=== PATIENT | female | born 2000 | race Caucasian/White ===

== ENCOUNTER 2024-03-01 10:55 | Inpatient (IN) | payer OTHER ==
[2024-03-01] MEDS: ELECTROLYTE-148 SOLN 1,000 ML IV SCH (11:35)
[2024-03-01] MEDS: DINOPROSTONE 10 MG VAGINAL SUPPOSITORY VG STA (12:00)
[2024-03-01 12:01] LABS: BASO % 0.1 % (0-2.0); EOS % 0.8 % (0-4.5); HEMATOCRIT 38.5 % (32.4-45.2); HEMOGLOBIN 13.1 GM/dL (10.7-15.3); LYMPH % 15.9 % (8-40); MCH 29.9 pg (25.7-33.7); MCHC 34.1 g/dl (32.0-36.0); MEAN CELL VOLUME 87.7 fl (80-96); MEAN PLT VOLUME 8.8 fl (7.5-11.1); MONO % 7.1 % (3.8-10.2); NEUT % 76.1 % (42.8-82.8); PLATELET COUNT 188 10^3/uL (134-434); RBC 4.39 M/mm3 (3.60-5.2); RDW 14.3 % (11.6-15.6); WHITE BLOOD COUNT 8.4 K/mm3 (4.0-10.0)
[2024-03-01 12:10] LABS: INR 0.89 (0.83-1.09); PROTHROMBIN TIME (PATIENT) 10.1 SEC (9.7-13.0)
[2024-03-01 12:11] VITALS: BMI 39.2
[2024-03-01 12:13] LABS: ACTIVATED PTT 27.2 SECONDS (25.2-36.5)
[2024-03-01 12:27] LABS: POTASSIUM 3.9 mmol/L (3.5-5.1)
[2024-03-01 12:28] LABS: CALCIUM 8.5 mg/dL (8.5-10.1)
[2024-03-01 12:29] LABS: BLOOD UREA NITROGEN 5.8 mg/dL (7-18)
[2024-03-01 12:32] LABS: CREATININE 0.4 mg/dL (0.55-1.3)
[2024-03-02] MEDS: DINOPROSTONE 10 MG VAGINAL SUPPOSITORY VG STA (00:10)
[2024-03-02] MEDS ORDERED: BUTORPHANOL TARTRATE 2 MG/ML VIAL ONE ×2 (00:26→11:53)
[2024-03-02] MEDS ORDERED: PROMETHAZINE HCL 25 MG/1 ML VIAL ONE ×2 (00:27→11:54)
[2024-03-02] MEDS: PROMETHAZINE HCL 25 MG/1 ML VIAL IVPB ONE ×2 (00:30→12:02)
[2024-03-02] MEDS: BUTORPHANOL TARTRATE 1 MG/ML VIAL IVPB ONE (00:30)
[2024-03-02] MEDS ORDERED: OXYTOCIN 30 UNITS in 0.9% NS 30 UNIT/500 ML INFUS.BAG IVPB ONE (11:37)
[2024-03-02] MEDS: OXYTOCIN 30 UNITS in 0.9% NS 30 UNIT/500 ML INFUS.BAG IVPB SCH (11:45)
[2024-03-02] MEDS: BUTORPHANOL TARTRATE 2 MG/ML VIAL IVPB ONE (12:02)
[2024-03-02] MEDS ORDERED: FENTANYL/BUPIVACAINE/NS/PF - PCEA - 50 ML DISP.SYRIN EP ONE ×2 (16:29→20:14)
[2024-03-02] MEDS: FENTANYL/BUPIVACAINE/NS/PF - PCEA - 50 ML DISP.SYRIN EP SCH (16:45)
[2024-03-02] MEDS ORDERED: NALOXONE HCL 0.4 MG/ML VIAL IVPUSH PRN (17:56)
[2024-03-02] MEDS ORDERED: TERBUTALINE SULFATE 1 MG/1 ML VIAL SQ ONE (22:37)
[2024-03-02] MEDS: TERBUTALINE SULFATE 1 MG/1 ML VIAL SQ ONE (22:42)
[2024-03-02] MEDS ORDERED: ONDANSETRON 4 MG/2 ML VIAL IVPUSH PRN (23:29)
[2024-03-02] MEDS ORDERED: SODIUM CHLORIDE 0.9% P/F 10 ML VIAL IJ ONE ×2 (23:35→23:37)
[2024-03-02] MEDS ORDERED: ceFAZolin SODIUM 1 GM VIAL ONE (23:35)
[2024-03-02] MEDS ORDERED: PHENYLEPHRINE HCL 10 MG/1 ML SINGLE DOSE VIAL ONE (23:37)
[2024-03-03] MEDS ORDERED: KETAMINE HCL 200 MG/20 ML VIAL ONE (00:12)
[2024-03-03] MEDS ORDERED: LIDOCAINE HCL/PF 2% SDV 5ML VIAL ONE (00:13)
[2024-03-03] MEDS ORDERED: LIDO 2%/EPI 1:200000 PRESRVFRE (20 ML SDVIAL) ONE (00:14)
[2024-03-03] MEDS ORDERED: OXYTOCIN 10 UNITS/ML VIAL ONE ×3 (00:25→00:29)
[2024-03-03] MEDS ORDERED: MIDAZOLAM HCL 2 MG/2 ML SINGLE DOSE VIAL ONE (00:30)
[2024-03-03] MEDS ORDERED: FENTANYL CITRATE/PF 50 MCG/ML VIAL ONE (00:38)
[2024-03-03] MEDS ORDERED: KETOROLAC TROMETHAMINE 30 MG/1 ML VIAL ONE (00:48)
[2024-03-03] MEDS ORDERED: ACETAMINOPHEN 325 MG TABLET (FP) PO PRN (01:15)
[2024-03-03] MEDS ORDERED: IBUPROFEN 600 MG TABLET (FP) PO PRN (01:15)
[2024-03-03] MEDS ORDERED: METHYLERGONOVINE MALEATE 0.2 MG/1 ML AMP IM PRN (01:15)
[2024-03-03] MEDS ORDERED: MEPERIDINE HCL 25 MG/ML VIAL ONE (01:28)
[2024-03-03] MEDS: MEPERIDINE HCL 25 MG/ML VIAL IVPUSH ONE ×2 (01:32→07:26)
[2024-03-03] MEDS ORDERED: OXYTOCIN 20 UNITS in 0.9% NS 20 UNIT/1,000 ML INFUS.BAG IV ONE (03:03)
[2024-03-03] MEDS: OXYTOCIN 20 UNITS in 0.9% NS 20 UNIT/1,000 ML INFUS.BAG IV SCH (03:15)
[2024-03-03] MEDS: morphine SULFATE/PF 1 MG/2 ML (2cc Syringe - QUVA) EP ONE (07:27)
[2024-03-03] MEDS: SIMETHICONE 80 MG TAB.CHEW (FP) PO PRN (08:29)
[2024-03-03] MEDS: IBUPROFEN 600 MG TABLET (FP) PO PRN (08:29)
[2024-03-03] MEDS ORDERED: oxyCODONE HCL 5 MG TABLET PO PRN (13:15)
[2024-03-03] MEDS: ACETAMINOPHEN 325 MG TABLET (FP) PO PRN (20:55)
[2024-03-03] MEDS ORDERED: ACETAMINOPHEN/CAFFEINE/BUTALBITAL 1 TAB PO PRN (23:29)
[2024-03-03] MEDS ORDERED: ACETAMINOPHEN 1000 MG/100 ML BAG IVPB PRN (23:29)
[2024-03-03] MEDS: IBUPROFEN 800 MG/8 ML IJ IVPB PRN (23:46)
[2024-03-04] MEDS ORDERED: BISACODYL 10 MG SUPP.RECT RC PRN (01:15)
[2024-03-04 08:12] LABS: BASO % 0.2 % (0-2.0); EOS % 0.4 % (0-4.5); HEMATOCRIT 32.7 % (32.4-45.2); HEMOGLOBIN 11.1 GM/dL (10.7-15.3); LYMPH % 15.2 % (8-40); MCH 30.1 pg (25.7-33.7); MEAN CELL VOLUME 88.7 fl (80-96); MEAN PLT VOLUME 8.9 fl (7.5-11.1); MONO % 8.3 % (3.8-10.2); NEUT % 75.9 % (42.8-82.8); PLATELET COUNT 171 10^3/uL (134-434); RBC 3.69 M/mm3 (3.60-5.2); RDW 14.9 % (11.6-15.6); WHITE BLOOD COUNT 11.2 K/mm3 (4.0-10.0)
[2024-03-04] MEDS ORDERED: ACETAMINOPHEN/CAFFEINE/BUTALBITAL 1 TAB PO PRN (09:23)
[2024-03-04] MEDS: FLU VACCINE (FLULAVAL) PF 60 MCG/0.5 ML SYRINGE 2023-2024 IM ONE (09:31)
[2024-03-04] MEDS: ACETAMINOPHEN/CAFFEINE/BUTALBITAL 1 TAB PO PRN (12:01)
[2024-03-04] MEDS: oxyCODONE HCL 5 MG TABLET PO PRN (23:03)
[2024-03-04 23:40] VITALS: TEMP 98.4
[2024-03-05 12:12] VITALS: BP 120/59; PULSE 75; RESP 16
[2024-03-05] MEDS ORDERED: IBUPROFEN 600 MG TABLET (FP) PO PRN (15:37)
== END 2024-03-05 17:05 | disposition home or self-care (01) | DRG 540 ==
LOC: JLDR 10:55 → J3W 03-03 02:51
PROVIDERS: ADMIT Student in an Organized Health Care Education/Training Program; ATTEND Student in an Organized Health Care Education/Training Program
PROC: 3E0P7VZ Introduction of Hormone into Female Reproductive, Via Natural or Artificial Opening (ICD-10-PCS; 2024-03-01)
PROC: 0U7C7ZZ Dilation of Cervix, Via Natural or Artificial Opening (ICD-10-PCS; 2024-03-02)
PROC: 10907ZC Drainage of Amniotic Fluid, Therapeutic from Products of Conception, Via Natural or Artificial Opening (ICD-10-PCS; 2024-03-02)
PROC: 10D00Z1 Extraction of Products of Conception, Low, Open Approach (ICD-10-PCS; principal; 2024-03-03)
DX: O48.0 Post-term pregnancy (principal); O61.0 Failed medical induction of labor; Z3A.41 41 weeks gestation of pregnancy; Z37.0 Single live birth
CPT/HCPCS: 36415; 80048; 85025; 85610; 85730; 86780; 86850; 86900; 86901; 88307-TC; 90686; G0008

== ENCOUNTER 2024-03-23 00:54 | Emergency (ER) | payer OTHER ==
[2024-03-23 01:00] VITALS: RESP 18; BMI 36.3
[2024-03-23] MEDS: ACETAMINOPHEN 500 MG TABLET (FP) PO ONE (03:50)
[2024-03-23] MEDS ORDERED: ACETAMINOPHEN 325 MG TABLET (FP) ONE (04:26)
[2024-03-23 04:36] VITALS: BP 128/76; PULSE 80; TEMP 98
== END 2024-03-23 04:35 | disposition home or self-care (01) ==
LOC: JER 00:54
PROC: 0HQFXZZ Repair Right Hand Skin, External Approach (ICD-10-PCS; principal; 2024-03-23)
DX: S01.01XA Laceration without foreign body of scalp, initial encounter (principal); W01.198A Fall on same level from slipping, tripping and stumbling with subsequent striking against other object, initial encounter
CPT/HCPCS: 99283-25